=== PATIENT | male | born 1980 | race Caucasian/White ===

== ENCOUNTER 2018-05-01 02:51 | Observation (INO) | payer BC ==
[~2018-05-01] VITALS: Ht 182.9 cm; Wt 82.3 kg
[~2018-05-01 02:51] MED LIST: NAPROSYN500 MG PO
--- NOTE | 2018-05-01 03:00 | NUR ---
PT AMB TO ROOM 13
[2018-05-01 03:46] LABS: HEMATOCRIT 42.8 % (39.0-50.0); HEMOGLOBIN 14.5 g/dl (14.0-18.0); IMMATURE GRANULOCYTES 0.3 % (0.0-5.0); MEAN CELL VOLUME 87.3 fL CALC (80.0-100.0); MEAN CORPUSCULAR HGB 29.6 pG CALC (26.0-32.0); MEAN CORPUSCULAR HGB CONC 33.9 g/L CALC (32.0-36.0); NEUT# 7.34 thou/uL (1.82-7.42); RED BLOOD COUNT 4.9 mill/uL (4.70-6.10); RED CELL DISTRI WIDTH 12.6 % (11.5-15.5)
[2018-05-01 03:47] LABS: URINE BILIRUBIN - DIPSTICK NEGATIVE (NEGATIVE); URINE BLOOD DIPSTICK NEGATIVE (NEGATIVE); URINE CLARITY TURBID; URINE COLOR YELLOW; URINE GLUCOSE - DIPSTICK NEGATIVE (NEGATIVE); URINE KETONE NEGATIVE (NEGATIVE); URINE LEUK ESTERASE NEGATIVE (NEGATIVE); URINE NITRITE - DIPSTICK NEGATIVE (Negative); URINE PH 8.5 (4.5-8.0); URINE PROTEIN - DIPSTICK NEGATIVE (NEG-TRACE); URINE SPECIFIC GRAVITY 1.015; URINE UROBILINOGEN - DIPSTICK 0.2 E.U./dL (0.2)
[2018-05-01 03:50] LABS: URINE AMORPH SEDIMENT MANY hpf (NONE-FER); URINE HYALINE CAST FEW lpf (NONE-RARE); URINE MUCUS FEW hpf (NONE-FEW); URINE RBC 0-2 RBC/hpf (0-5); URINE SQUAMOUS EPITHELIAL CELL FEW EPI/hpf (0-FEW)
[2018-05-01 03:55] LABS: ALBUMIN 4.6 g/dL (3.2-5.0); ALKALINE PHOSPHATASE 100 u/l (38-126); ANION GAP 15 (6-22 (CALC)); BILIRUBIN, TOTAL 0.4 mg/dL (0.0-1.4); BUN 14 mg/dL (9-20); BUN/CREATININE RATIO 17 (12-20 (CALC)); CARBON DIOXIDE 28 mmol/l (22-30); CHLORIDE 103 mmol/l (95-108); CREATININE 0.9 mg/dL (0.7-1.3); GFR > 60 ML/MIN (>=60 (CALC)); GFR FOR AFR.AMER. > 60 ML/MIN (>=60 (CALC)); LIPASE 513 u/l (23-300); POTASSIUM 4.3 mmol/l (3.5-5.1); SGOT/AST 28 u/l (17-59); SODIUM 141 mmol/l (137-146); TOTAL PROTEIN 7.6 g/dL (6.3-8.2)
--- NOTE | 2018-05-01 03:55 | NUR ---
PT RELATED PAIN STARTING TO IMPROVE.
--- NOTE | 2018-05-01 04:13 | NUR ---
PT TO CT VIA W/C.
--- NOTE | 2018-05-01 04:33 | NUR ---
RETURNED FROM CT.
--- NOTE | 2018-05-01 04:38 | NUR ---
PT RELATED PAIN DECREASED TO 4/10. PT VOMITED IN CT.
--- NOTE | 2018-05-01 05:00 | NUR ---
PT RELATED NAUSEA IMPROVED.
--- NOTE | 2018-05-01 05:15 | NUR ---
DR REBOLLAR AT BEDSIDE, INFORMED PT OF FINDINGS AND NEED FOR ADMISSION.
--- NOTE | 2018-05-01 05:36 | NUR ---
REPORT CALLED TO GAB BATISTA.
--- NOTE | 2018-05-01 05:48 | NUR ---
PT TO 282 VIA W/C. PT COND STABLE.
--- NOTE | 2018-05-01 05:55 | NUR ---
PT ARRIVED TO THE FLOOR IN STABLE CONDITION VIA STRETCHER AND ACCOMPANIED BY ED NURSE. PT REPORTS PAIN OF 2 ON 0-10 PAIN SCALE. PT WEIGHED AND SETTLED TO BED. ORIENT PT TO ROOM CALL SYSTEM. BED IN LOW POSITION AND CALL IN REACH.
[2018-05-01 06:19] VITALS: BP 132/81
[2018-05-01 07:30] VITALS: BP 156/77
--- NOTE | 2018-05-01 07:45 | NUR ---
PT ALERT AND ORIENTED RESTIG IN BED, AM ASSESSMENT COMPLETED SEE INTERVENTIONS NPO STATUS EXPLAINED WITH SUSANNES TO DIAGNOSIS, IVF INFUSING AT PRESCRIBED RATE, EDUCATED REGARDING PAIN MGMT, PT ADMITS TO HAVING PROBLEMS WITH CONSTIPATION AT HOME AND THAT LAST BM WAS SUNDAY AND FIRM/SMALL, ALSO STATES HE HAS HAD THE PAIN ON AND OFF FOR 2 WEEKS, WITH N/V LAST 2 DAYS, STATES PAIN ABOUT A "2" RIGHT NOW, DENIES N/V. SKIN INTACT AND AMBULATES WITH STRONG STEADY GAIT, CALL LINN WITHIN REACH, SAFETY MEASURES REINFORCED, WILL CONTINUE TO MONITOR.
--- NOTE | 2018-05-01 09:05 | NUR ---
MEDICATED FOR PAIN ORDERED, PRE MEDICATED WITH ZOFRAN TO PREVENT NAUSEA, FAMILY MEMBERS AT BEDSIDE, CALL LINN WITHIN REACH
--- NOTE | 2018-05-01 11:50 | NUR ---
PT RESTING IN BED WITH EYES CLOSED, DOSZES INTERMITTENTLY, FAMILY MEMBER REMAINS AT BEDSIDE, MEDICATED EARLIER FOR COMPLAINTS OF PAIN, REMAINS NPO EXCEPT FOR MINIMAL ICE WATER, IVF CONTINUE AT PRESCRIBED RATE, WILL CONTINUE TO MONITOR.
--- NOTE | 2018-05-01 12:43 | NUR ---
pt disconnected from ivf to run to car for cupola charger, to call nurse upon return for restart of IVF
--- NOTE | 2018-05-01 12:55 | NUR ---
PT BACK IN ROOM AND IVF RESTARTED AT PRESCRIBED RATE, PT AMBULATES WTIH STRONG STEADY GAIT, CALL LINN WITHIN REACH.
[2018-05-01 12:56] LABS: ALBUMIN 3.8 g/dL (3.2-5.0); ALKALINE PHOSPHATASE 78 u/l (38-126); AMYLASE 63 u/l (30-110); ANION GAP 12 (6-22 (CALC)); BILIRUBIN, TOTAL 0.4 mg/dL (0.0-1.4); BUN 11 mg/dL (9-20); BUN/CREATININE RATIO 15 (12-20 (CALC)); CARBON DIOXIDE 26 mmol/l (22-30); CHLORIDE 108 mmol/l (95-108); CREATININE 0.8 mg/dL (0.7-1.3); GFR > 60 ML/MIN (>=60 (CALC)); GFR FOR AFR.AMER. > 60 ML/MIN (>=60 (CALC)); LIPASE 108 u/l (23-300); POTASSIUM 4.4 mmol/l (3.5-5.1); SGOT/AST 23 u/l (17-59); SODIUM 141 mmol/l (137-146); TOTAL PROTEIN 6.4 g/dL (6.3-8.2)
--- NOTE | 2018-05-01 14:30 | NUR ---
PT RESTING IN BED, OFFERS NO COMPLAINTS, IVF CONTINUE NPO STATUS MAINTAINED, NO FURTHER COMPLAINTS OF PAIN VOICED, WILL CONTINUE TO MONITOR.
--- NOTE | 2018-05-01 15:43 | NUR ---
PT RESTING IN BED, DOZES INTERMITTENLY CALL LINN WITHIN REACH, FAMILY MEMBER AT BEDSIDE INTERMITTNELY, WELL, WILL CONTINUE TO MONITOR.
[2018-05-01 15:57] VITALS: BP 139/87
--- NOTE | 2018-05-01 17:41 | NUR ---
PT STATES HE HAS HAD A FEW EPISODES OF PAIN TODAY BUT DECLINED NEED FOR PAIN MED, STATES HE JUST WORKED THRU IT, INSTRUCTED PT TO NOTIFY STAFF OF OCCURENCES TO MONITOR FREQUENCY, VERALIZES UNDERSTANDING. MOTHER REMAINS AT BEDSIDE INTERMITTENLY, CALL LINN WITHIN REACH.
--- NOTE | 2018-05-01 19:00 | NUR ---
RECEIVED CHANGE OF SHIFT REPORT FROM LESTER BOND. PT ALERT AND ORIENTED AND LYING IN BED WITH VISITOR AT BEDSIDE. DENIES PAIN AT THIS TIME. NO APPARENT ACUTE DISTRESS NOTED. WILL CONTINUE TO MONITOR.
[2018-05-01 19:30] VITALS: BP 124/75
--- NOTE | 2018-05-01 20:00 | NUR ---
PT CALLED THE NURSING STATION AND STATES HE IS HAVING PAIN. REOPRTS PAIN LEVEL OF 8 ON 0-10 PAIN SCALE. MEDICATED WITH MORPHINE 2MG IV PUSH. WILL CONTINUE TO MONITOR.
--- NOTE | 2018-05-02 | NUR ---
PT RESTING QUIETLY AT THIS TIME. NO APPARENT ACUTE DISTRESS NOTED.
[2018-05-02 04:00] VITALS: BP 122/79
--- NOTE | 2018-05-02 04:01 | NUR ---
PT SLEPT WELL DURING THE NIGHT. PAIN CONTROLED. NO APPARENT ACUTE CHANGES NOTED IN PT'S CONDITION.
--- NOTE | 2018-05-02 07:10 | NUR ---
REPORT RECIEVED FROM LESTER DE GUZMAN. PT RESTING IN BED W/ SPOUSE. NO S/S OF DISTRESS NOTED. PT REQUESTING TO GO DOWNSTAIRS TO SMOKE. CALL LIGHT IN REACH. WILL CONTINUE TO MONITOR.
[2018-05-02 07:25] VITALS: BP 125/79
--- NOTE | 2018-05-02 07:25 | NUR ---
PT ASSESSMENT COMPLETE. PT A/O X3. SPEECH IS CLEAR. RESP EVEN AND UNLBAORED. LUNG SOUNDS CLEAR. BOWEL SOUNDS ACTIVE X4. PT DENIES ANY ABDOMINAL PAIN AT THIS TIME. #22 LAC LR @100. SITE APPEARS HEALTHY. STRONG RADIAL AND PEDAL PULSES. PLAN OF CARE DISCUSSED. PT STATES UNDERSTANDING. SAFETY PRECAUTIONS IN PLACE. CALL LIGHT IN REACH. WILL CONTINUE TO MONITOR.
[2018-05-02 08:31] LABS: ALBUMIN 3.8 g/dL (3.2-5.0); ALKALINE PHOSPHATASE 79 u/l (38-126); AMYLASE 53 u/l (30-110); ANION GAP 12 (6-22 (CALC)); BILIRUBIN, TOTAL 0.6 mg/dL (0.0-1.4); BUN 12 mg/dL (9-20); BUN/CREATININE RATIO 17 (12-20 (CALC)); CARBON DIOXIDE 27 mmol/l (22-30); CHLORIDE 103 mmol/l (95-108); CREATININE 0.7 mg/dL (0.7-1.3); GFR > 60 ML/MIN (>=60 (CALC)); GFR FOR AFR.AMER. > 60 ML/MIN (>=60 (CALC)); LIPASE 69 u/l (23-300); SGOT/AST 25 u/l (17-59); SODIUM 138 mmol/l (137-146); TOTAL PROTEIN 6.5 g/dL (6.3-8.2)
--- NOTE | 2018-05-02 10:07 | NUR ---
Discharge instructions given. Patient verbalizes understanding of same. Discharged in stable condition via Ambulatory to Home with *Other. All belongings sent with pt.
== END 2018-05-02 10:07 | disposition home or self-care (01) | DRG 440 ==
LOC: ED 02:51 → ED-I 05:00 → ED 05:26 → MS2 05:27
PROVIDERS: Emergency Medicine; ADMIT Internal Medicine; ATTEND Internal Medicine Nephrology
DX: K85.90 Acute pancreatitis without necrosis or infection, unspecified (principal); F17.210 Nicotine dependence, cigarettes, uncomplicated; R73.9 Hyperglycemia, unspecified; Z83.3 Family history of diabetes mellitus; Z83.438 Family history of other disorder of lipoprotein metabolism and other lipidemia
CPT/HCPCS: G0378; S0164